=== PATIENT | male | born 1975 | race Caucasian/White ===

== ENCOUNTER 2020-12-02 19:42 | Emergency (ER) | payer MEDICAID, OTHER ==
[~2020-12-02] VITALS: Ht 180.3 cm; Wt 91.0 kg
[2020-12-02 20:15] LABS: CLARITY URINE CLEAR (CLEAR); COLOR URINE YELLOW (YELLOW); KETONES URINE TRACE (NEGATIVE); LEUKOCYTE ESTERASE URINE NEGATIVE (NEGATIVE); NITRITE URINE NEGATIVE (NEGATIVE); OCCULT BLOOD URINE NEGATIVE (NEGATIVE); PROTEIN URINE 2+ (NEGATIVE); UROBILINOGEN URINE 0.2 E.U./dL (0.2-1.0)
[2020-12-02 21:59] VITALS: BP 110/76
[2020-12-02] MEDS ORDERED: CEFTRIAXONE SODIUM 500 MG/VIAL IM ONE (22:15)
[2020-12-02] MEDS ORDERED: AZITHROMYCIN 500 MG TABLET PO ONE (22:15)
[2020-12-02 22:53] LABS: BASOPHILS % 0.4 % (0.0-2.0); HEMATOCRIT. 41.1 % (42.0-52.0); HEMOGLOBIN. 14.1 g/dL (14.0-18.0); MEAN CORPUSCULAR VOLUME 90.7 fL (80.0-94.0); MEAN PLATELET VOLUME 6.9 fl (7.4-10.4); MONOCYTES % 5.9 % (2.0-8.0); NEUTROPHILS % 65.7 % (40.0-76.0); PLATELET 300 x1000/uL (130-400); RED BLOOD CELL COUNT 4.53 mill/uL (4.7-6.1); RED CELL DISTRIBUTION WIDTH 14.5 % (11.6-14.6)
[2020-12-02 22:56] LABS: *AMPHETAMINES SCREEN URINE PRESUMTIVE POSITIVE (NEGATIVE); *BENZODIAZEPINES SCREEN URINE NEGATIVE (NEGATIVE); *COCAINE SCREEN URINE NEGATIVE (NEGATIVE); METHADONE URINE SCREEN NEGATIVE (NEGATIVE); OPIATES URINE SCREEN NEGATIVE (NEGATIVE)
[2020-12-02 22:57] LABS: *BARBITURATES SCREEN URINE NEGATIVE (NEGATIVE); CANNABINOID URINE SCREEN PRESUMTIVE POSITIVE (NEGATIVE); PHENCYCLIDINE URINE SCREEN NEGATIVE (NEGATIVE)
[2020-12-02 22:58] LABS: CHLORIDE 108 mEq/L (98-107)
== END 2020-12-02 23:29 | disposition home or self-care (01) ==
LOC: ER 19:42
DX: Z20.2 Contact with and (suspected) exposure to infections with a predominantly sexual mode of transmission (principal); R10.9 Unspecified abdominal pain; R30.0 Dysuria; E86.0 Dehydration; F15.10 Other stimulant abuse, uncomplicated; F12.10 Cannabis abuse, uncomplicated; N17.0 Acute kidney failure with tubular necrosis; R82.4 Acetonuria; R80.9 Proteinuria, unspecified; E87.8 Other disorders of electrolyte and fluid balance, not elsewhere classified; R00.0 Tachycardia, unspecified; E11.9 Type 2 diabetes mellitus without complications; Z98.890 Other specified postprocedural states; Z87.440 Personal history of urinary (tract) infections; Z87.09 Personal history of other diseases of the respiratory system
CPT/HCPCS: 36415; 74022; 80053; 80305; 81003; 83880; 84484; 85025; 93005; 99285; J0696

== ENCOUNTER 2021-08-15 18:09 | Emergency (ER) | payer MEDICAID ==
[~2021-08-15] VITALS: Ht 172.7 cm; Wt 85.0 kg
[2021-08-15 19:11] VITALS: BP 106/57
[2021-08-15] MEDS ORDERED: CYCL5TAB MT (20:54)
[2021-08-15] MEDS ORDERED: ACET-2708 MT (20:54)
== END 2021-08-15 21:05 | disposition home or self-care (01) ==
LOC: ER 18:09
DX: M54.9 Dorsalgia, unspecified (principal); F12.10 Cannabis abuse, uncomplicated; F15.10 Other stimulant abuse, uncomplicated; F41.9 Anxiety disorder, unspecified; E11.9 Type 2 diabetes mellitus without complications; Z87.440 Personal history of urinary (tract) infections; Z98.890 Other specified postprocedural states
CPT/HCPCS: 99281

== ENCOUNTER 2023-03-10 01:22 | Emergency (ER) | payer MEDICAID ==
[~2023-03-10] VITALS: Ht 177.8 cm; Wt 86.9 kg
[~2023-03-10 01:22] MED LIST: ACET-2708 MT; CYCL5TAB MT
[2023-03-10 01:39] VITALS: BP 126/78; PULSE 78; RESP 16; TEMP 98.7; O2SAT 100
[2023-03-10 06:16] LABS: CLARITY URINE CLEAR (CLEAR); COLOR URINE YELLOW (YELLOW); KETONES URINE NEGATIVE (NEGATIVE); LEUKOCYTE ESTERASE URINE NEGATIVE (NEGATIVE); NITRITE URINE NEGATIVE (NEGATIVE); OCCULT BLOOD URINE NEGATIVE (NEGATIVE); PH URINE 5.5 (4.5-8.0); PROTEIN URINE NEGATIVE (NEGATIVE); SPECIFIC GRAVITY URINE 1.033 (1.005-1.030)
[2023-03-12 19:06] LABS: NEISSERIA GONORRHOEAE NAA Negative (Negative)
== END 2023-03-10 05:24 | disposition left against medical advice (07) ==
LOC: ER 01:22
DX: Z53.21 Procedure and treatment not carried out due to patient leaving prior to being seen by health care provider (principal)
CPT/HCPCS: 81003; 87491; 87591; 99281

== ENCOUNTER 2023-06-02 05:03 | Emergency (ER) | payer MEDICAID, OTHER ==
[~2023-06-02] VITALS: Ht 180.3 cm; Wt 91.0 kg
[2023-06-02 05:14] VITALS: BP 112/77; PULSE 88; RESP 18; TEMP 98; O2SAT 99
[2023-06-02] MEDS ORDERED: CEFTRIAXONE SODIUM 500 MG/VIAL IM ONE (06:00)
[2023-06-02] MEDS ORDERED: TETR-65 MT (06:04)
[2023-06-02] MEDS ORDERED: BUTE30CR4 TP (06:04)
[2023-06-02 06:31] LABS: CLARITY URINE CLEAR (CLEAR); COLOR URINE YELLOW (YELLOW); GLUCOSE URINE 3+ (NEGATIVE); KETONES URINE NEGATIVE (NEGATIVE); LEUKOCYTE ESTERASE URINE NEGATIVE (NEGATIVE); NITRITE URINE NEGATIVE (NEGATIVE); OCCULT BLOOD URINE NEGATIVE (NEGATIVE); PH URINE 5.5 (4.5-8.0); PROTEIN URINE NEGATIVE (NEGATIVE); SPECIFIC GRAVITY URINE 1.053 (1.005-1.030)
[2023-06-02 06:34] LABS: BACTERIA URINE NONE SEEN; SQUAMOUS EPITHELIAL CELL URINE NONE SEEN /lpf (RARE/1+); YEAST URINE NONE SEEN
[2023-06-02 08:08] LABS: RBC URINE 0-2 /hpf (0-2); WBC URINE 0-2 /hpf (0-2)
[2023-06-04 04:08] LABS: CHLAMYDIA TRACHOMATIS NAA Negative (Negative); NEISSERIA GONORRHOEAE NAA Negative (Negative)
== END 2023-06-02 06:41 | disposition home or self-care (01) ==
LOC: ER 05:03
DX: Z20.2 Contact with and (suspected) exposure to infections with a predominantly sexual mode of transmission (principal)
CPT/HCPCS: 99283; 87491; 87591; 81003; 96372; J0696

== ENCOUNTER 2023-09-07 18:12 | Emergency (ER) | payer MEDICAID, OTHER ==
[~2023-09-07] VITALS: Ht 180.3 cm; Wt 85.0 kg
[~2023-09-07 18:12] MED LIST changes: +BUTE30CR4 TP; +TETR-65 MT
[2023-09-07 18:29] VITALS: BP 117/70; PULSE 89; RESP 16; TEMP 98.6; O2SAT 96
[2023-09-07] MEDS ORDERED: IBUPROFEN 600MG TABLET PO ONE (18:30)
[2023-09-07] MEDS ORDERED: DOXYCYCLINE HYCLATE 100MG CAPSULE PO ONE (20:15)
[2023-09-07] MEDS ORDERED: CEFTRIAXONE SODIUM 500MG VIAL IM ONE (20:15)
[2023-09-07] MEDS ORDERED: IBUPROFEN 600MG TABLET PO NR (21:15)
[2023-09-07] MEDS ORDERED: DOXY100T2 MT (21:37)
[2023-09-10 04:07] LABS: CHLAMYDIA TRACHOMATIS NAA Negative (Negative); NEISSERIA GONORRHOEAE NAA Negative (Negative)
== END 2023-09-07 21:44 | disposition home or self-care (01) ==
LOC: ER 18:12
DX: A64 Unspecified sexually transmitted disease (principal); E11.9 Type 2 diabetes mellitus without complications; F12.10 Cannabis abuse, uncomplicated; F15.10 Other stimulant abuse, uncomplicated
CPT/HCPCS: 87491; 87591; 96372; 99283; J0696; Z7610 ×2

== ENCOUNTER 2024-04-26 19:34 | Emergency (ER) | payer MEDICAID, OTHER ==
[~2024-04-26] VITALS: Ht 180.3 cm; Wt 76.5 kg
[~2024-04-26 19:34] MED LIST changes: +DOXY100T2 MT
[2024-04-26 19:41] VITALS: O2SAT 100
[2024-04-26 19:45] VITALS: BP 96/65; PULSE 124; RESP 18; TEMP 98.5; O2SAT 99
[2024-04-26] MEDS ORDERED: BACITRACIN ZINC OINT UDPKT TOP ONE (22:15)
[2024-04-26] MEDS ORDERED: TETANUS, DIPHTHERIA, PERTUSSIS VAC/PF 0.5ML (>10YR OLD) IM ONE (22:15)
[2024-04-26] MEDS ORDERED: LIDOCAINE HCL/PF 1% 10 MG/ML 5ML VIAL INFIL ONE (22:15)
== END 2024-04-27 00:10 | disposition left against medical advice (07) ==
LOC: ER 19:34
DX: L02.413 Cutaneous abscess of right upper limb (principal); F12.10 Cannabis abuse, uncomplicated; F15.10 Other stimulant abuse, uncomplicated; E11.9 Type 2 diabetes mellitus without complications; Z98.890 Other specified postprocedural states
CPT/HCPCS: 73090; 99283

== ENCOUNTER 2024-08-08 22:50 | Emergency (ER) | payer MEDICAID, OTHER ==
[~2024-08-08] VITALS: Ht 177.8 cm; Wt 81.0 kg
[~2024-08-08 22:50] MED LIST changes: -CYCL5TAB MT; +CYCL5TAB3 MT
[2024-08-08 23:46] VITALS: BP 108/68; RESP 16; TEMP 98.2; O2SAT 100
[2024-08-08 23:48] VITALS: PULSE 99; O2SAT 99
[2024-08-09] MEDS: TETANUS, DIPHTHERIA, PERTUSSIS VAC/PF 0.5ML (>10YR OLD) IM ONE (00:15)
[2024-08-09] MEDS: LIDOCAINE HCL/PF 1% 10 MG/ML 5ML VIAL INFIL ONE (00:15)
[2024-08-09] MEDS: KETOROLAC 15MG/ML VIAL IM ONE (02:55)
== END 2024-08-09 02:55 | disposition left against medical advice (07) ==
LOC: ER 22:50
DX: L02.512 Cutaneous abscess of left hand (principal); E11.9 Type 2 diabetes mellitus without complications; F12.10 Cannabis abuse, uncomplicated; F15.10 Other stimulant abuse, uncomplicated; Z79.899 Other long term (current) drug therapy
CPT/HCPCS: 99281; J3490; 90715